=== PATIENT | female | born 1995 | race Caucasian/White ===

== ENCOUNTER 2016-05-24 15:50 | Inpatient (IN) | payer OTHER ==
[~2016-05-24] VITALS: Ht 170.2 cm; Wt 43.7 kg
--- NOTE | ~2016-05-24 | CON ---
[place], [place] RE[facility]ATION [id number] UNIT #: [id number] ROOM: 531 DOCTOR: DAKSHA KING ED.D (ABHINAV) BIRTHDATE: [birth year] DOS: HISTORY OF PRESENT ILLNESS: The patient is a 21-year-old female referred by the hospitalist for psychological evaluation. At the present time, she is a [facility] patient on the 5th floor at [facility]. She states her mother is living and she has one brother. She is not working. She has no family physician. Her medical history is pertinent for cocaine and opiate addiction along with cannabis abuse. She does not use any alcoholic beverages, but does smoke 1 pack of cigarettes per day. This patient was awake, alert, and oriented in all three spheres. She denies any suicidal ideation or plan, although she was more depressed yesterday. She states she feels better today and is more optimistic. She has been in rehabilitation 5 times in [place] and [place]. Last time she was in rehabilitation was 2 weeks ago. She had been prescribed Latuda because at one time she was diagnosed as being bipolar. She does not believe she is bipolar. She was on Cymbalta for several months and did very well on it and I suggested she may be able to tolerate Cymbalta and then follow up with her psychiatrist in [place] when she returns home. She attempted suicide at age 15 and she tried to cut her throat. She is not having any hallucinations or delusional thoughts. This patient states that she to follow up with outpatient mental health treatment along with drug rehabilitation. She denies any suicidal ideation or plan. She states she will do nothing to harm herself. I did recommend medications that might be helpful to this patient when I discussed the case with the hospitalist. DIAGNOSES: 1. Cocaine addiction. 2. Opioid addiction. 3. Major depressive disorder, recurrent. RECOMMENDATIONS: The patient may benefit from medications for her depression. Thank you very much for this consult. DAKSHA KING ED.D CM:CONSTR:REPORT OF CONSULTATION 0946 05/25/16 1053 interface
[2016-05-24 16:36] LABS: BASO # 0.1 10*3/uL (0.0-0.1); BASO % 1.1 % (0.0-1.0); EOS # 0.4 10*3/uL (0.0-0.4); EOS % 4.6 % (1.0-4.0); HEMATOCRIT 40.7 % (37.0-47.0); LYMPH # 2.2 10*3/uL (1.3-4.4); MEAN CELL VOLUME 90.6 fl (81.0-99.0); MEAN CORPUSCULAR HGB CONC 31.9 g/dl (33.0-37.0); MEAN PLATELET VOLUME 9.8 fl (9.6-12.3); MONO # 0.3 10*3/uL (0.1-1.0); NEUT # 5.1 10*3/uL (2.3-7.9); NEUT % 62.9 % (47.0-73.0); PLATELET COUNT AUTOMATED 269 10*3/uL (130-400); RED BLOOD COUNT 4.49 10*6/uL (4.10-5.10); RED CELL DISTRI WIDTH 13.9 % (0-14.5); WHITE BLOOD COUNT 8.1 10*3/uL (4.8-10.8)
[2016-05-24 16:46] LABS: PROTHROMBIN TIME 10.5 SECONDS (9.0-12.4)
[2016-05-24 16:51] LABS: ALBUMIN 3.3 gm/dl (3.1-4.5); ALKALINE PHOSPHATASE 65 U/L (45-117); BILIRUBIN, TOTAL 0.1 mg/dl (0.2-1.0); BUN 6 mg/dl (7-24); CARBON DIOXIDE 25 mmol/L (21-32); CHLORIDE 111 mmol/L (98-107); EST GLOM FILT AFRICAN AMERICAN > 60 ml/min; GLUCOSE 87 mg/dL (65-99); POTASSIUM 3.9 mmol/L (3.5-5.1); SGOT/AST 35 IU/L (3-35); SGPT/ALT 76 U/L (12-78); SODIUM 146 mmol/L (136-145); TOTAL PROTEIN 7.3 gm/dL (6.4-8.2)
[2016-05-24 17:23] LABS: BILIRUBIN NEGATIVE (NEGATIVE); BLOOD NEGATIVE (NEGATIVE); CLARITY CLOUDY (CLEAR); COLOR YELLOW (YELLOW); GLUCOSE NEGATIVE (NEGATIVE); KETONE NEGATIVE (NEGATIVE); LEUKO ESTERASE NEGATIVE (NEGATIVE); NITRITE NEGATIVE (NEGATIVE); PH 7.5 (5.0-9.0); PROTEIN NEGATIVE (NEGATIVE); UROBILINOGEN 0.2 E.U./dl (0.2-1.0)
[2016-05-24 17:29] LABS: URINE AMPHETAMINES < 1000 (1000ng/ml); URINE BARBITURATES < 200 (200ng/ml); URINE COCAINE > 300 (300ng/ml)
[2016-05-24 17:31] LABS: BACTERIA 2+; EPITHELIAL CELLS 20-25; RBC 0-2 rbc/hpf (0-2); URINE REFLEX COMMENT YES (NO)
[2016-05-27] MEDS ORDERED: NATURE'S BLEND F1 MG PO (10:15)
[2016-05-27] MEDS ORDERED: CARBIDOPA/LEVOD1 TA1 PO (10:15)
[2016-05-27] MEDS ORDERED: VITAMIN B-11 TAB PO (10:15)
[2016-05-27] MEDS ORDERED: ATARAX,VISTARIL50 MG PO (10:15)
[2016-05-27] MEDS ORDERED: THERA TABS1 TAB PO (10:15)
[2016-05-27] MEDS ORDERED: METHOCARBAMOL750 M1 PO (10:15)
== END 2016-05-27 13:45 | DRG 896 ==
LOC: 5E 15:50
PROVIDERS: Internal Medicine
DX: F11.23 Opioid dependence with withdrawal (principal); E43 Unspecified severe protein-calorie malnutrition; F33.9 Major depressive disorder, recurrent, unspecified; Z68.1 Body mass index [BMI] 19.9 or less, adult; F41.9 Anxiety disorder, unspecified; F14.10 Cocaine abuse, uncomplicated; F17.200 Nicotine dependence, unspecified, uncomplicated; Z71.6 Tobacco abuse counseling; Z83.3 Family history of diabetes mellitus

== ENCOUNTER 2016-06-05 19:00 | Emergency (ER) | payer OTHER ==
[~2016-06-05] VITALS: Ht 170.1 cm; Wt 54.4 kg
[~2016-06-05 19:00] MED LIST: ATARAX,VISTARIL50 MG PO; CARBIDOPA/LEVOD1 TA1 PO; METHOCARBAMOL750 M1 PO; NATURE'S BLEND F1 MG PO; THERA TABS1 TAB PO; VITAMIN B-11 TAB PO
[2016-06-05 19:37] LABS: BILIRUBIN NEGATIVE (NEGATIVE); BLOOD NEGATIVE (NEGATIVE); CLARITY CLEAR (CLEAR); COLOR YELLOW (YELLOW); GLUCOSE NEGATIVE (NEGATIVE); KETONE TRACE (NEGATIVE); LEUKO ESTERASE NEGATIVE (NEGATIVE); NITRITE NEGATIVE (NEGATIVE); PROTEIN NEGATIVE (NEGATIVE); SPECIFIC GRAVITY 1.025 (1.005-1.030)
[2016-06-05 19:37] LABS: BASO % 0.5 % (0.0-1.0); EOS # 0.1 10*3/uL (0.0-0.4); EOS % 1.6 % (1.0-4.0); LYMPH # 2.7 10*3/uL (1.3-4.4); LYMPH % 36.8 % (27.0-41.0); MEAN CELL VOLUME 90.3 fl (81.0-99.0); MEAN CORPUSCULAR HGB 29.3 pg (27.0-31.0); MEAN CORPUSCULAR HGB CONC 32.5 g/dl (33.0-37.0); MEAN PLATELET VOLUME 9.8 fl (9.6-12.3); MONO # 0.4 10*3/uL (0.1-1.0); NEUT # 4.1 10*3/uL (2.3-7.9); NEUT % 55.8 % (47.0-73.0); PLATELET COUNT AUTOMATED 321 10*3/uL (130-400); RED BLOOD COUNT 4.43 10*6/uL (4.10-5.10); RED CELL DISTRI WIDTH 15.4 % (0-14.5); WHITE BLOOD COUNT 7.4 10*3/uL (4.8-10.8)
[2016-06-05 19:46] LABS: MUCOUS TRACE; RBC 0-2 rbc/hpf (0-2); URINE REFLEX COMMENT NO (NO)
[2016-06-05 19:47] LABS: URINE AMPHETAMINES < 1000 (1000ng/ml); URINE BARBITURATES < 200 (200ng/ml); URINE COCAINE < 300 (300ng/ml)
[2016-06-05 19:55] LABS: ALBUMIN 3.9 gm/dl (3.1-4.5); ALKALINE PHOSPHATASE 155 U/L (45-117); BILIRUBIN, TOTAL 0.3 mg/dl (0.2-1.0); BUN 9 mg/dl (7-24); CARBON DIOXIDE 29 mmol/L (21-32); CHLORIDE 108 mmol/L (98-107); EST GLOM FILT AFRICAN AMERICAN > 60 ml/min; GLUCOSE 75 mg/dL (65-99); POTASSIUM 4.1 mmol/L (3.5-5.1); SGOT/AST 411 IU/L (3-35); SODIUM 145 mmol/L (136-145); TOTAL PROTEIN 7.6 gm/dL (6.4-8.2)
[2016-06-05 19:58] LABS: SGPT/ALT 1034 U/L (12-78)
== END 2016-06-05 20:12 | disposition other institution (70) ==
LOC: ED 19:00
PROVIDERS: Registered Nurse
DX: F19.10 Other psychoactive substance abuse, uncomplicated (principal); F17.200 Nicotine dependence, unspecified, uncomplicated; Z79.899 Other long term (current) drug therapy